=== PATIENT | male | born 1955 | race Caucasian/White ===

== ENCOUNTER 2021-10-22 00:10 | Outpatient (CLI) | payer MEDICARE, OTHER, SELFPAY ==
--- NOTE | 2021-10-22 | DI.NM_ITS ---
APPROVED REPORT Exam: Pharmacologic Patient Location: Out-Patient Room/Bed: Stress Nurse: Savi Hall RN Ordering Provider:TAMANNA MCGARRY, Contact Number: [phone] BMI: 46.16 Baseline Rhythm: Atrial sensed, ventricular paced, occasional atrial pacing, RBBB and LAFB Indications: Angina Medical History Medical History: Hypertension, hyperlipidemia, diabetes, obesity, COPD, hx AFIB, hx DVTs Cardiac Medications: Eliquis, torsemide, simvastatin, nitroglycerin, torsemide, albuterol, symbicort, novolog, tresiba, trulicity Allergies: Morphine, penicillins, pollen extracts, adhesive tape Cardiac Risk Factors: Hypertension, hyperlipidemia, diabetes, obesity, COPD, family hx Previous Cardiac Procedures: Pacemaker (11/13/2020) Pretest Chest Pain Characteristics: None Exercise History: Seentary Physical Disabilities: Unsteady gait, requiring bilateral knee replacements Lung Sounds: Diminished lower lobes Heart Sounds: Regular Stress Test Details Test: Pharmacologic stress was paired with low level exercise. Reason for pharmacologic stress test: physical limitation. Nuclear Acquisition: Rest Tc-99m/Stress Tc-99m 1 day Rest Isotope: Tc-99m Sestamibi. Dose: 12.2 Date: 10/22/2021 Injection Time: 0845 Stress Isotope: Tc-99m Sestamibi. Dose: 35.1 Date: 10/22/2021 Injection Time: 1010 HR Resting HR Supine: 66 bpm Max Heart Rate (APMHR): 152.678865 bpm Resting HR Standin bpm Target HR (85% APMHR): 129.240684 bpm Max HR Achieved: 130 bpm % of APMHR: 85.53 Recovery HR: 84 bpm HR response to stress: Normal HR response to stress BP Resting BP Supine: 152/70 mmHg Resting BP Standin/72 mmHg Max BP: 170/84 mmHg Recovery BP: 152/80 mmHg ECG Resting ECG: Atrial sensed, ventricular paced, occasional atrial pacing, RBBB and LAFB Ectopy: None Stress ECG: Sinus Tachycardia, RBBB and LAFB ST Change: No significant ST segment changes noted Arrhythmia: None Recovery ECG: Sinus Rhythm, RBBB and LAFB Recovery ST Change: No significant ST segment changes noted Recovery Arrhythmia: None Clinical Stress Symptoms: General Fatigue, Dyspnea, Lightheadedness, Headache Rate Pressure Product: [id number] Stress ECG Conclusion 1. The patient's resting EKG showed atrial sensed ventricular paced rhythm 2. The patient underwent pharmacologic stress coupled with low-level exercise 3. Heart rate achieved was 85% of predicted for age 4. Electrocardiographic portion of the test was nondiagnostic due to resting ST-T abnormalities 5. See MPI report Stress Test Summary STAGE HR BP Symptoms NOTES Supine 66 152/70 Baseline ORTEZ 7/10 SpO2 95% 1 min post Lexiscan injection 115 150/76 Moderate SOB SpO2 95% 3 min post Lexiscan injection 117 170/84 SOB improving, mild lightheadedness SpO2 97% 6 min post Lexiscan injection 88 152/80 ORTEZ 10/10, SOB and lightheadedness improving SpO2 95% 9 min post Lexiscan injection 84 SOB and lightheadedness resolved, ORTEZ improving SpO2 95% Pharmacologic stress was paired with low level exercise at 0.7mph and 0% grade due to pt's physical l imitation. Pt reported symptoms of SOB and lightheadedness which resolved during recovery. Also repor aguilar baseline OTREZ 7/10 which increased during pharmacolgic stress. Reported ORTEZ was improving during rec overy. MPI Conclusion Myocardial perfusion appears normal, no evidence of ischemia or prior infarction EF 48%, normal wall motion Radiologist Interpretation Radiologist agrees with Cv Tech's Interpretation. Radiologist Interpretation by: Corrine Manzanares MD Interpretation Date/Time: 10/22/2021 16:22:05
[2021-10-22] MEDS: Regadenoson 0.4 MG/5 ML SYR IVP (10:56)
== END 2021-10-22 00:30 ==
PROVIDERS: PCP Internal Medicine; Visit Provider Family Medicine
DX: I20.8 Other forms of angina pectoris (principal)
CPT/HCPCS: 78452; 93016; 93018; 93017; J2785

== ENCOUNTER 2025-01-24 02:19 | Outpatient (CLI) | payer MEDICARE, SELFPAY ==
--- NOTE | 2025-01-24 | DI.NM_ITS ---
APPROVED REPORT Exam: Pharmacologic Patient Location: Out-Patient Room/Bed: Stress Nurse: Cata Hines RN Ordering Provider:DEBBIE BURRIS, Contact Number: [phone] BMI: 39.13 Baseline Rhythm: Paced Indications: Exertional chest pain, DONOVAN, fatigue, Medical History Medical History: Paced, CAD, afib, aflutter, DVT, PE, GERD, HTN, HLD, T2DM, COPD, FISH, (on CPAP), tac hy-kishore syndrome, obesity, hypoventilation syndrome Cardiac Medications: Insulin aspart, trelegy ellipta, metoprolol succinate, nitro, allopurinol, amlod ipine, atorvastatin, ondansetron, ozempic, spironolactone, flexeril, flagyl, tresiba flextouch, eliqu is, omeprazole, colchicine, symbicort, torsemide, victoza, ambien, vardenafil, metoprolol tartrate, d oxycycline, simvastatin Cardiac Risk Factors: Family hx, HTN, HLD, CVD, diabetes, COPD, obesity Previous Cardiac Procedures: Pacemaker placement, cardiac cath Pretest Chest Pain Characteristics: None Exercise History: Sedentary Physical Disabilities: Bilat knees Lung Sounds: Clear to auscultation Heart Sounds: Irregular Stress Test Details Test: Pharmacologic stress testing performed using 0.4 mg of regadenoson per 5 mL given IV over 10 s econds. Reason for pharmacologic stress test: physical limitation. Nuclear Acquisition: Rest Tc-99m/Stress Tc-99m 1 day Rest Isotope: Tc-99m Sestamibi. Dose: 10.0 Date: 01/24/2025 Injection Time: 1100 Stress Isotope: Tc-99m Sestamibi. Dose: 30.0 Date: 01/24/2025 Injection Time: 1305 HR Resting HR Supine: 63 bpm Max Heart Rate (APMHR): 149 bpm Target HR (85% APMHR): 127 bpm Max HR Achieved: 87 bpm % of APMHR: 58 Recovery HR: 70 bpm BP Resting BP Supine: 142/70 mmHg Max BP: 158/76 mmHg Recovery BP: 146/70 mmHg ECG Resting ECG: Paced Stress ECG: Paced ST Change: Nondiagnostic low heart rate Recovery ECG: Paced Recovery ST Change: Nondiagnostic low heart rate Clinical Stress Symptoms: Mild SOB Angina Score: None Rate Pressure Product: [id number] Stress ECG Conclusion 1. Resting electrocardiogram showed atrial and ventricular paced rhythm 2. Patient underwent testing using pharmacologic stress with regadenoson 3. Peak heart rate achieved was 58% of maximal predicted heart rate for age 4. Electrocardiographic portion of the test was nondiagnostic 5. See MPI report Stress Test Summary STAGE HR BP SpO2 Symptoms NOTES Supine 63 142/70 98% 1 min post Lexiscan injection 81 150/68 98% Mild SOB 3 min post Lexiscan injection 77 158/76 98% Mild SOB 6 min post Lexiscan injection 70 146/70 98% SOB resolved. MPI Conclusion Technically suboptimal images There is no significant myocardial ischemia There is infarction of the inferior wall and apex Ejection fraction is 35% with an inferoapical wall motion abnormality
== END 2025-01-24 02:39 ==
PROVIDERS: PCP Internal Medicine; Visit Provider Internal Medicine Cardiovascular Disease
DX: R07.9 Chest pain, unspecified (principal); R06.09 Other forms of dyspnea; R53.83 Other fatigue
CPT/HCPCS: 78452; 93016; 93018; 93017